=== PATIENT | female | born 1985 | race Caucasian/White ===

== ENCOUNTER 2021-07-16 12:35 | Outpatient (CLI) | payer OTHER, SELFPAY ==
--- NOTE | 2021-07-16 | ECHO_ITS ---
Patient Info Name: Sheryl MartinezSee Age: 36 years : 1985 Gender: Female Ht: 63 in Wt: 280 lbs BSA: 2.46 m2 HR: 95 bpm BP: 117 / 88 mmHg Heart Rhythm: Sinus Rhythm Technical Quality: Fair Exam Date: 07/16/2021 12:21 PM Exam Location: [facility] Patient Status: Outpatient Admit Date: 07/16/2021 Staff Ordering Physician: FLORIAN MACDONALD Superintendent Track: Janelle Aj RDCS Attending Provider: Florian Macdonald MD Referring Physician: TORRES VANCE; Exam Type: CA echo doppler color flow Study Info Indications - Hypermobile Janelle-Danlos Syndrome Complete two-dimensional, color flow and Doppler transthoracic echocardiogram is performed. Summary 1. Complete two-dimensional, color flow and Doppler transthoracic echocardiogram is performed. 2. Left ventricular chamber dimension is normal. 3. Left ventricular systolic function is normal, estimated at 60-65%. 4. The left ventricular diastolic function is normal. 5. E/e' 9 is minimally elevated. 6. No pulmonary hypertension, estimated pulmonary arterial systolic pressure is 25 mmHg. Left Ventricle E/e' 9 is minimally elevated. Left ventricular chamber dimension is normal. Left ventricular systolic function is normal, estimated at 60-65%. The left ventricular diastolic function is normal. Right Ventricle Right ventricular systolic function is normal and with normal TAPSE 2.1 cm. Right ventricular chamber dimension is normal. Left Atria Left atrial chamber dimension is normal. Right Atria Right atrial chamber dimension is normal. Aortic Valve The aortic valve is trileaflet. There is no aortic valve stenosis. There is no aortic valve regurgitation. Pulmonic Valve There is no pulmonic regurgitation. Mitral Valve There is no mitral valve stenosis. There is no mitral valve regurgitation. Tricuspid Valve There is no tricuspid valve regurgitation. No pulmonary hypertension, estimated pulmonary arterial systolic pressure is 25 mmHg. Pericardium/Pleural There is no pericardial effusion. Inferior Vena Cava Normal inferior vena cava with >50% collapse upon inspiration consistent with normal right atrial pressure, 5 mmHg. Aorta The aortic root size at the sinus of Valsalva is normal. Left Ventricular Outflow Tract Name Value Normal LVOT 2D LVOT Diameter 2.0 cm LVOT Doppler LVOT Peak Gradient 7 mmHg LVOT Mean Gradient 3 mmHg LVOT VTI 24 cm LVOT VTI/AV VTI Ratio 0.7 LVOT Stroke Volume 78 ml LVOT CO 6.5 l/min LVOT CI 2.7 l/min/m2 Pulmonic Valve Name Value Normal RVOT Doppler RVOT Peak Gradient 2 mmHg PV Doppler ---------
== END 2021-07-16 12:36 | disposition home or self-care (01) ==
LOC: ANHCARD 12:38
PROVIDERS: PCP Emergency Medicine; Visit Provider Emergency Medicine
DX: Q79.62 Hypermobile Ehlers-Danlos syndrome (principal)
CPT/HCPCS: 93306

== ENCOUNTER 2022-10-01 09:40 | Outpatient (CLI) | payer OTHER, SELFPAY ==
[2022-10-01 10:12] LABS: Hemoglobin 13.4 g/dL (12.0-15.0); Mean Corpuscular HGB Conc 32.7 g/dl (32-36); Mean Corpuscular Hemoglobin 28.4 pg (26-34); Mean Corpuscular Volume 86.9 fl (80-100); Mean Platelet Volume 9.7 fl (7.4-10.4); Platelet Count Result 272 k/mm3 (150-375); Red Blood Count 4.72 M/mm3 (4.2-5.4); Red Cell Distribution Width 12.4 % (11.5-14.5); White Blood Count 11.2 K/mm3 (4.5-10.0)
== END 2022-10-01 09:41 | disposition home or self-care (01) ==
LOC: ANHLAB 09:41
PROVIDERS: PCP Emergency Medicine; Visit Provider Obstetrics & Gynecology
DX: N92.0 Excessive and frequent menstruation with regular cycle (principal)
CPT/HCPCS: 36415; 85027

== ENCOUNTER 2022-10-03 02:50 | Day surgery (SDC) | payer OTHER, SELFPAY ==
[2022-09-26 10:09] VITALS: BMI 50.5
--- NOTE | 2022-09-26 10:33 | PC.NURSE ---
Report to the Outpatient Waiting Room, entrance under the green pavilion located off [facility], at 0730 on 10-03-22. Planned Procedure Time: 0930. Time changes happen often and if your time is changed the preop area will call you the afternoon before. - You and your visitor will be asked to self-screen and do not enter if you have any COVID symptoms. - A mask is optional within the hospital at this time. Patients may have clear liquids (water, carbonated beverages, clear teas, apple juice) until 3 hours prior to surgery with a maximum of 20 ounces. 0630 - No food from midnight until time of surgery - Infants may have breast milk until 4 hours before surgery, formula 6 hours prior to surgery. - Children will be allowed to drink immediately following surgery. If applicable, please bring a bottle or sippy cup to assist with drinking. Juice, water, soda, and popsicles are readily available. For infants on formula, please bring formula the day of surgery. Pacifiers are allowed. Take the following medications with a SIP of water the morning of surgery: None Bring inhalers to hospital day of surgery DO NOT STOP ANY OF YOUR OTHER PRESCRIPTION MEDICATIONS PRIOR TO SURGERY ?EXCEPT THE FOLLOWING Medications to discontinue per physician: Ibuprofen Date to take last dose: Per Dr. Austin Please no make-up, nail bahamian, hairspray, perfume, deodorant, or body powder the day of surgery. No jewelry (including any body piercings) or valuables the day of surgery, leave them at home. Please take a shower or bath the night before, or the morning of, surgery with an antibacterial soap. Wear comfortable, loose fitting clothing. Children are encouraged to wear pajamas. - Jewelry must be removed prior to entering the operating room. Rings and piercings that are not removed may be cut off. - The hospital will not accept responsibility for valuables. - Please leave all valuables, including medications, at home the day of surgery. If you are going home after surgery, a licensed backhaul driver must drive you home. - NO public transportation without another adult if you receive anesthesia. - We recommend that an adult stay with you for 24 hours following discharge. - We also recommend that you do not drive, make important decision, drink alcoholic beverages, or take any drugs that were not prescribed by your health care provider for at least 24 hours after your discharge time. For Pediatric surgeries, we recommend two adults accompany the child home. Follow any additional instructions given to you from your surgeon. If you or anyone in your household have experienced Covid symptoms in the past week, please notify your surgeon or the nurse liaison at the phone number below for possible testing. Telephone instructions given to Sheryl Knight and asked if any additional questions and then verbalized understanding. Patient advised to call surgeon office or pre surgery nurse liaison [phone] if any additional questions.
--- NOTE | 2022-10-03 07:19 | WPDHPUPDATE1 ---
History and Physical Update Update Date/Time: 10/03/22 07:19 Plan: 1. hysteroscopy with D&C 2. endometrial ablation History and Physical has been reviewed, including an updated exam of the patient. There are NO changes in the patient's condition. Risks, benefits, and alternatives have been discussed and questions answered. Patient agrees to proceed with procedure.
[2022-10-03 07:50] VITALS: BP 150/74; PULSE 80; RESP 16; TEMP 36.2; O2SAT 100
[2022-10-03 08:02] VITALS: BMI 51.5
[2022-10-03] MEDS: LACTATED RINGERS 1,000 ML 30 ML IV CONT (08:05)
[2022-10-03] MEDS: ACETAMINOPHEN 500 MG TABLET 1000 MG PO (08:15)
--- NOTE | 2022-10-03 09:23 | WPDANESEPPF ---
Anes - Initial Pre Proc Eval Procedure: Operation Date: 10/03/22 09:30 Proposed Procedures p Hysteroscopy Dilation and Curettage, Deirdre Endometrial Ablation - Humberto Austin MD Date/Time: 10/03/22 09:23 Surgeon: Humberto Austin MD Pre Op Diagnosis: Menorrhagia Patient Data Age: 37 Gender: F Height: 1.6 m Weight: 131.9 kg Last Vital Signs Temp 36.2 C L 10/03/22 07:50 Pulse 80 10/03/22 07:50 Resp 16 10/03/22 07:50 BP 150/74 H 10/03/22 07:50 Pulse Ox 100 10/03/22 07:50 O2 Del Method Room Air 10/03/22 07:50 Allergies Allergy/AdvReac Type Severity Reaction Status Date / Time codeine Allergy Mild suicidal Verified 10/03/22 08:19 copper AdvReac Intermediate Other Verified 10/03/22 08:19 BUTORPHANOL TARTRATE Allergy Mild Confusion Uncoded 09/26/22 10:01 Dial soap Allergy Mild Itching Uncoded 09/26/22 10:01 Home Medications Medication Instructions Recorded Confirmed Type albuterol sulfate 90 mcg/actuation 1 inh inhalation Q4H 08/27/21 09/26/22 History aerosol inhaler (Ventolin HFA) fluticasone propionate 113 1 inh inhalation Q12H 08/27/21 10/03/22 History mcg/actuation breath activated pwdr inhal,sensor (ArmonAir Digihaler) montelukast 10 mg tablet 10 mg PO DAILY 08/27/21 09/26/22 History ibuprofen 200 mg tablet 400 mg PO Q6H PRN pain 09/26/22 09/26/22 History Patient hx anesthesia problems: none Family hx anesthesia problems: none Results Review: All pre-operative results and documents have been reviewed as part of the pre-operative evaluation. [facility] Past Medical History Medical History Asthma Encounter for screening examination for sexually transmitted disease Ganglion cyst (~2011) rt ankle--nerve repair Screening mammogram, encounter for Sleep apnea Vision loss Surgical History Surgical History History of ankle surgery (~2011) rt ankle History of neck surgery (~2013) ACDF C5/6--metal plate & 4 screws History of tubal ligation (12/26/17) Family History Family History Father Diabetes mellitus Grandparent Cerebrovascular accident maternal grandfather Hypertension maternal grandfather Mother Hypertension Other Family history of arthritis Family history of mental disorder Social History Social History Smoking status: Never smoker Second hand tobacco smoke exposure: No Alcohol intake: never Substance use: never Substance use type: does not use Living arrangements: with family Additional living arrangements comments: / Occupation/Education: occupation 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 Gender identity (if verbalized by the patient): Female Sexual Orientation (if Verbalized by the Patient): Straight or Heterosexual Spiritual care concerns: No Anes - Eval Final PreProcedure Day of Procedure 10/03/22 09:23 Patient weight: morbidly obese Heart: regular rate and rhythm Lungs: clear to auscultation Airway: Mallampati scale class II Neurological: alert and oriented Last oral intake: >/= 8 hours ASA classification: III Emergent: no Anesthetic plan: proceed Anesthesia type and monitoring: general GIVS and standard monitoring Results Review: All pre-operative results and documents have been reviewed as part of the pre-operative evaluation. Informed Consent: The patient's anesthetic plan and its attendant risks and benefits were discussed with the patient/family/POA. Questions were solicited and answers provided to the satisfaction of the patient/family/POA.
[2022-10-03] MEDS: ceFAZolin 3 GM/D5W 100 ML 100 ML IVPB (09:33)
--- NOTE | 2022-10-03 10:03 | W.PM.PROC2 ---
Procedure Note - Detailed Date of Procedure 10/03/22 Pre-op Diagnosis Menorrhagia Post-op Diagnosis Same Procedure Performed 1. Hysteroscopy with uterine curettings 2. Endometrial ablation Surgeon Humberto Austin MD Anesthesia MAC Findings Slightly thickened endometrial tissue Description of Procedure Patient prepped and draped in usual manner for this procedure. Cervix was dilated to allow the hysteroscope to be placed which did reveal slightly thickened endometrial cavity but no polyps or fibroids appreciated. Uterine curettings were obtained, endometrial ablation instrument was placed cavity assessment was performed. Instrument was activated with good destruction noted throughout after the procedure. Patient was then sent to recovery room in stable condition. Estimated Blood Loss 10 Drains No Packing No Pathology Yes Complications No immediate complications Condition Stable Disposition PACU [facility] Billing Surgery - Charge Forward: Surgery Billing
[2022-10-03 10:05] VITALS: BP 129/77; PULSE 77; RESP 14; O2SAT 95
[2022-10-03 10:35] VITALS: BP 117/72; PULSE 74; RESP 14; O2SAT 99
[2022-10-03 11:05] VITALS: BP 121/78; PULSE 74; RESP 14
== END 2022-10-03 11:26 | disposition home or self-care (01) ==
PROVIDERS: PCP Emergency Medicine; Visit Provider Obstetrics & Gynecology
PROC: 0U5B8ZZ Destruction of Endometrium, Via Natural or Artificial Opening Endoscopic (ICD-10-PCS; CPT 58563; principal; 2022-10-03 09:30)
DX: N92.0 Excessive and frequent menstruation with regular cycle (principal); J45.909 Unspecified asthma, uncomplicated; G47.30 Sleep apnea, unspecified; Z79.51 Long term (current) use of inhaled steroids; E66.01 Morbid (severe) obesity due to excess calories; Z68.43 Body mass index [BMI] 50.0-59.9, adult
CPT/HCPCS: 58563; 88305; A9270; J0690; J1100; J2250; J2405; J2704; J3010; J7120

== ENCOUNTER 2023-01-23 14:13 | Outpatient (CLI) | payer OTHER, SELFPAY ==
--- NOTE | ~2023-01-23 | MM_ITS ---
EXAMINATION: MM screening galdino BI w sallie HISTORY: Screening TECHNIQUE: Craniocaudal and mediolateral oblique 3-D tomosynthesis images were obtained and synthetic 2-D images were generated. CAD analysis was submitted and interpreted. COMPARISON: No prior mammogram is available for comparison at this institution. BREAST PARENCHYMAL COMPOSITION: The breasts are almost entirely fatty. FINDINGS: There is no evidence of suspicious mass, calcification, or architectural distortion to sugg est malignancy in either breast. There has been no suspicious interval change. IMPRESSION: 1. No mammographic evidence of malignancy. 2. Recommend routine screening mammography in one year. BI-RADS Category 1: Negative Reviewed, dictated and finalized at location A.
== END 2023-01-23 14:14 | disposition home or self-care (01) ==
PROVIDERS: PCP Emergency Medicine; Visit Provider Emergency Medicine
DX: Z12.31 Encounter for screening mammogram for malignant neoplasm of breast (principal)
CPT/HCPCS: 77063; 77067

== ENCOUNTER 2023-01-29 01:17 | Day surgery (SDC) | payer OTHER, SELFPAY ==
[2023-01-17 13:29] VITALS: BMI 50.5
[2023-01-29 07:57] VITALS: BP 135/74; PULSE 93; RESP 18; TEMP 36.1; O2SAT 98
[2023-01-29] MEDS: LACTATED RINGERS 1,000 ML 150 ML IV CONT (08:15)
--- NOTE | 2023-01-29 09:00 | PM.HPGS ---
History of Present Illness History of Present Illness Consent: Risks, benefits, and alternatives have been discussed and questions answered. Patient agrees to proceed with procedure. Chief complaint: Iron Deficiency Anemia Narrative: Sheryl Palma is a 38 year old female with mishel on iv iron infusion as needed, also diarrhea up to 6 times a day, no overt gib, never had scopes Review of Systems Constitutional: Constitutional: Denies headache(s) and Denies weakness Eyes: Eyes: Denies blurry vision ENT: Reports Normal hearing present, Denies headache(s) and Denies neck pain Cardiovascular: Cardiovascular: Denies chest pain and Denies dyspnea Respiratory: Respiratory: Denies dyspnea Gastrointestinal: Gastrointestinal: Reports no additional gastrointestinal complaints Genitourinary: Genitourinary: Denies dysuria Musculoskeletal: Musculoskeletal: Denies neck pain Integumentary/Breasts: Skin/Breast: Denies dry skin Neurologic: Reports Normal hearing present, Denies headache(s) and Denies weakness Psychiatric: Psychiatric: Denies anxiety Endocrine: Endocrine: Denies change in body appearance Hematologic/Lymphatic: Hematologic/Lymphatic: Denies easy bleeding Allergic/Immunologic: Allergic/Immunologic: Denies urticaria PMFSH Past Medical History Medical History (Updated 01/29/23 @ 09:01 by Kody Diaz MD) Asthma Diarrhea Encounter for screening examination for sexually transmitted disease Ganglion cyst (~2011) rt ankle--nerve repair Iron deficiency anemia Screening mammogram, encounter for Sleep apnea Vision loss Surgical History Surgical History History of ankle surgery (~2011) rt ankle History of hysteroscopy (10/03/22) Hysteroscopy with uterine curettings Endometrial ablation History of neck surgery (~2013) ACDF C5/6--metal plate & 4 screws History of tubal ligation (12/26/17) Family History Family History Father Diabetes mellitus Grandparent Cerebrovascular accident maternal grandfather Hypertension maternal grandfather Mother Hypertension Other Family history of arthritis Family history of mental disorder Social History Social History (Updated 10/21/22 @ 14:55 by RAQUEL Solomon) Smoking status: Never smoker Second hand tobacco smoke exposure: No Alcohol intake: never Substance use: never Substance use type: does not use Lack of Transportation: No Lack of Food: Never True Current Housing: I Have Housing Concerned About Future Housing: No Difficulty Paying Gas/Electric Bills: No Difficulty Paying for Meds: No Currently Unemployed: No Education: Associate Degree Difficulty w/ Childcare or Family Care: No Living arrangements: alone Additional living arrangements comments: / Occupation/Education: occupation 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 Gender identity (if verbalized by the patient): Female Sexual Orientation (if Verbalized by the Patient): Straight or Heterosexual Spiritual care concerns: No Meds Home Medications and Allergies Home Medications Medication Instructions Recorded Confirmed Type albuterol sulfate 90 mcg/actuation 1 inh inhalation Q4H PRN SOB 08/27/21 01/29/23 History aerosol inhaler (Ventolin HFA) fluticasone propionate 113 1 inh inhalation Q12H 08/27/21 01/29/23 History mcg/actuation breath activated pwdr inhal,sensor (ArmonAir Digihaler) montelukast 10 mg tablet 10 mg PO DAILY 08/27/21 01/29/23 History ibuprofen 200 mg tablet 400 mg PO Q6H PRN pain 09/26/22 01/29/23 History ascorbic acid (vitamin C) 1 gummy PO DAILY 01/17/23 01/29/23 History Allergies Allergy/AdvReac Type Severity Reaction Status Date / Time codeine Allergy Severe suicidal Verified 01/29/23 07:55 butorphanol [From Stadol] Aller
[2023-01-29] MEDS: BENZOCAINE (*SP) 60 ML SPRAY CAN (HURRICAINE) 1 SPRAY MUCOUS MEM (09:12)
--- NOTE | 2023-01-29 09:17 | WPDANESEPPF ---
Anes - Initial Pre Proc Eval Procedure: Operation Date: 01/29/23 09:15 Proposed Procedures p Esophagogastroduodenoscopy & Colonoscopy - Kody Diaz MD Date/Time: 01/29/23 09:17 Surgeon: Kody Diaz MD Pre Op Diagnosis: Iron Deficiency Anemia Patient Data Age: 38 Gender: F Height: 1.6 m Weight: 126.6 kg Last Vital Signs Temp 96.9 F L 01/29/23 07:57 Pulse 93 01/29/23 07:57 Resp 18 01/29/23 07:57 BP 135/74 01/29/23 07:57 Pulse Ox 98 01/29/23 07:57 O2 Del Method Room Air 01/29/23 07:57 Allergies Allergy/AdvReac Type Severity Reaction Status Date / Time codeine Allergy Severe suicidal Verified 01/29/23 07:55 butorphanol [From Stadol] Allergy Intermediate Confusion Verified 01/29/23 07:55 copper AdvReac Intermediate Other Verified 01/29/23 07:55 Dial soap Allergy Mild Itching Uncoded 01/29/23 07:55 Home Medications Medication Instructions Recorded Confirmed Type albuterol sulfate 90 mcg/actuation 1 inh inhalation Q4H PRN SOB 08/27/21 01/29/23 History aerosol inhaler (Ventolin HFA) fluticasone propionate 113 1 inh inhalation Q12H 08/27/21 01/29/23 History mcg/actuation breath activated pwdr inhal,sensor (ArmonAir Digihaler) montelukast 10 mg tablet 10 mg PO DAILY 08/27/21 01/29/23 History ibuprofen 200 mg tablet 400 mg PO Q6H PRN pain 09/26/22 01/29/23 History ascorbic acid (vitamin C) 1 gummy PO DAILY 01/17/23 01/29/23 History Patient hx anesthesia problems: none Family hx anesthesia problems: none Results Review: All pre-operative results and documents have been reviewed as part of the pre-operative evaluation. [facility] Past Medical History Medical History (Updated 01/29/23 @ 09:01 by Kody Diaz MD) Asthma Diarrhea Encounter for screening examination for sexually transmitted disease Ganglion cyst (~2011) rt ankle--nerve repair Iron deficiency anemia Screening mammogram, encounter for Sleep apnea Vision loss Surgical History Surgical History History of ankle surgery (~2011) rt ankle History of hysteroscopy (10/03/22) Hysteroscopy with uterine curettings Endometrial ablation History of neck surgery (~2013) ACDF C5/6--metal plate & 4 screws History of tubal ligation (12/26/17) Family History Family History Father Diabetes mellitus Grandparent Cerebrovascular accident maternal grandfather Hypertension maternal grandfather Mother Hypertension Other Family history of arthritis Family history of mental disorder Social History Social History (Updated 10/21/22 @ 14:55 by RAQULE Solomon) Smoking status: Never smoker Second hand tobacco smoke exposure: No Alcohol intake: never Substance use: never Substance use type: does not use Lack of Transportation: No Lack of Food: Never True Current Housing: I Have Housing Concerned About Future Housing: No Difficulty Paying Gas/Electric Bills: No Difficulty Paying for Meds: No Currently Unemployed: No Education: Associate Degree Difficulty w/ Childcare or Family Care: No Living arrangements: alone Additional living arrangements comments: / Occupation/Education: occupation 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
--- NOTE | 2023-01-29 09:37 | SUR.OPER ---
EGD START 913, END 919 COLONOSCOPY START 924, END 933
[2023-01-29 09:38] VITALS: BP 140/79; PULSE 83; RESP 22; O2SAT 98
[2023-01-29 09:48] VITALS: BP 110/60; PULSE 76; RESP 17; O2SAT 98
== END 2023-01-29 10:07 | disposition home or self-care (01) ==
PROVIDERS: PCP Emergency Medicine; Visit Provider Internal Medicine Gastroenterology
PROC: 0DJ08ZZ Inspection of Upper Intestinal Tract, Via Natural or Artificial Opening Endoscopic (ICD-10-PCS; CPT 43235; principal; 2023-01-29 09:15)
DX: D50.9 Iron deficiency anemia, unspecified (principal); R19.7 Diarrhea, unspecified; K22.2 Esophageal obstruction; K20.90 Esophagitis, unspecified without bleeding; K44.9 Diaphragmatic hernia without obstruction or gangrene; J45.909 Unspecified asthma, uncomplicated; G47.30 Sleep apnea, unspecified; Z79.51 Long term (current) use of inhaled steroids; Z98.1 Arthrodesis status
CPT/HCPCS: 45380; 43239; 43249; 88305; C1726; J2001; J2704; J7120

== ENCOUNTER 2023-02-26 06:00 | Outpatient (CLI) | payer OTHER, SELFPAY ==
[2023-02-10 14:04] VITALS: BMI 49.6
--- NOTE | 2023-02-26 06:38 | SUR.OPER ---
Patient brought to GI Lab. Instructions for patient undergoing Capsule Endoscopy reviewed with patient. Consent form signed. Sensor array applied to patient's abdomen and connected to recorded. Patient swallowed capsule with 16 ozs of water infused with Simethicone. Patient instructed they may have clear liquids at 0825 this AM and eat or drink at 1025 this AM. Patient instructed to return to GI Lab at 1500 this afternoon for removal of recording device and to call [phone] or to return to the hospital if any nausea and vomiting or abdominal pain is experienced.
--- NOTE | 2023-02-26 14:51 | SUR.OPER ---
Patient returned to the GI Lab at 1445 for recorder box removal. Patient voiced no complaints. States they have understanding of instructions. Patient left ambulatory.
== END 2023-02-26 14:53 | disposition home or self-care (01) ==
LOC: ANHENDO 06:01
PROVIDERS: PCP Emergency Medicine; Visit Provider Internal Medicine Gastroenterology
PROC: 0DJ07ZZ Inspection of Upper Intestinal Tract, Via Natural or Artificial Opening (ICD-10-PCS; CPT 91110; principal; 2023-02-26 07:00)
DX: Z01.818 Encounter for other preprocedural examination (principal); Z12.11 Encounter for screening for malignant neoplasm of colon
CPT/HCPCS: 91110

== ENCOUNTER 2024-08-13 13:28 | Emergency (ER) | payer OTHER, SELFPAY ==
[2024-08-13 13:38] VITALS: BP 133/76; PULSE 87; RESP 16; TEMP 36.3; O2SAT 98
--- NOTE | 2024-08-13 14:57 | ED_ITS ---
HPI - Ear Problem General Chief complaint: Ear Stated complaint: SORE THROAT/CONGESTION/HEADACHE/EARACHE Time Seen by Provider: 08/13/24 14:05 Source: patient and RN notes reviewed Mode of arrival: ambulatory Limitations: no limitations History of Present Illness HPI Narrative: 39-year-old female presents Express Care complaining of right-sided ear pain and congestion for 2 days. Patient denies any fever, cough, sore throat, body aches, chills. Patient has used [id number] Tylenol with minimal relief. Patient denies any chest pain or shortness of breath. Denies any significant past medical history Related Data Home Medications ?Medication ?Instructions ?Recorded ?Confirmed ?Last Taken ?Type albuterol sulfate 90 mcg/actuation 1 inh inhalation Q4H PRN SOB 08/27/21 09/08/23 Unknown History aerosol inhaler (Ventolin HFA) fluticasone propionate 113 1 inh inhalation Q12H 08/27/21 09/08/23 01/28/23 History mcg/actuation breath activated pwdr inhal,sensor (ArmonAir Digihaler) montelukast 10 mg tablet 10 mg PO DAILY 08/27/21 09/08/23 01/28/23 History ibuprofen 200 mg tablet 400 mg PO Q6H PRN pain 09/26/22 09/08/23 Unknown History ascorbic acid (vitamin C) 1 gummy PO DAILY 01/17/23 09/08/23 Unknown History Allergies Allergy/AdvReac Type Severity Reaction Status Date / Time codeine Allergy Severe suicidal Verified 08/13/24 13:42 butorphanol (From Stadol) Allergy Intermediate Confusion Verified 08/13/24 13:42 copper AdvReac Intermediate Other Verified 08/13/24 13:42 Dial soap Allergy Mild Itching Uncoded 08/13/24 13:42 Review of Systems Review of Systems: CONSTITUTIONAL: Denies fever, chills, or sweats. EYES: Denies visual changes, redness, or discharge. ENT: Denies rhinorrhea, sore throat, positive for congestion and otalgia. CARDIOVASCULAR: Denies chest pain, palpitations, or edema. RESPIRATORY: Denies cough or dyspnea. GASTROINTESTINAL: Denies abdominal pain, nausea, vomiting, or diarrhea. GENITOURINARY: Denies dysuria or hematuria. SKIN: Denies rash or itching. MUSCULOSKELETAL: Denies back pain, joint pain, or myalgia. NEUROLOGIC: Denies headache, numbness, or weakness. PSYCHIATRIC: Denies anxiety or depression. All other systems reviewed are negative, except as documented in HPI. [facility] Past Medical History Medical History Diarrhea Iron deficiency anemia Screening mammogram, encounter for Encounter for screening examination for sexually transmitted disease Vision loss Ganglion cyst (~2011) rt ankle--nerve repair Sleep apnea Asthma Surgical History Surgical History H/O colonoscopy (02/03/23) History of hysteroscopy (10/03/22) Hysteroscopy with uterine curettings Endometrial ablation History of tubal ligation (12/26/17) History of neck surgery (~2013) ACDF C5/6--metal plate & 4 screws History of ankle surgery (~2011) rt ankle Family History Family History Father Diabetes mellitus Grandparent Cerebrovascular accident maternal grandfather Hypertension maternal grandfather Mother Hypertension Other Family history of arthritis Family history of mental disorder Social History Social History Smoking status: Never smoker Second hand tobacco smoke exposure: No Alcohol intake: never Substance use: never Substance use type: does not use Do You Feel Safe in your Home?: Yes Lack of Transportation: No Lack of Food: Never True Current Housing: I Have Housing Concerned About Future Housing: No Difficulty Paying Gas/Electric Bills: No Difficulty Paying for Meds: No Currently Unemployed: No Education: Associate Degree Difficulty w/ Childcare or Family Care: No Living arrangements: alone Additional living arrangements comments: Occupation/Education: occupation 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 There is no relevant family history pertinent to the patient complaint. Exam Narrative: GENERAL: This is a well-nourished, well-developed adult, in no apparent distress. They are non ill-appearing, nontoxic appearing. HEAD: normocephalic, atraumatic. EYES: Sclera clear/white. Vision is grossly intact. EARS: External ears normal, auditory canals clear and without drainage, right TM is erythematous, non bulging, without perforation or discharge. Left TM mild erythemic, without swelling, non-bulging, without perforation or discharge. Hearing grossly intact. NOSE: External nose normal with no obvious nasal discharge, nasal turbinates are erythematous bilaterally, no rhinorrhea. THROAT: Mucous membranes moist, posterior pharynx clear. Uvula midline. Postnasal drip present NECK: Neck supple, non-tender without lymphadenopathy, masses or thyromegaly. CARDIOVASCULAR: Regular rate and rhythm without murmurs, gallops, or rubs. RESPIRATORY: Clear to auscultation. Breath sounds equal bilaterally. No wheezes, rales, or rhonchi. SKIN: warm, Dry, intact with no suspicious lesions or rash, good texture and turgor. NEURO: awake, alert, and oriented to person, place and time. There were no obvious focal neurologic abnormalities. EXTREMITIES: No joint tenderness, effusion, or edema noted. BACK: Nontender without deformity. No CVA tenderness. Course Course Level of Care: Express Care Visit Vital Signs Vital signs: Vital Signs Temperature 97.4 F L 08/13/24 13:38 Pulse Rate 87 08/13/24 13:38 Respiratory Rate 16 08/13/24 13:38 Blood Pressure 133/76 08/13/24 13:38 Pulse Oximetry 98 08/13/24 13:38 Oxygen Delivery Room Air 08/13/24 13:38 Temperature 97.4 F L 08/13/24 13:38 Pulse Rate 87 08/13/24 13:38 Respiratory Rate 16 08/13/24 13:38 Blood Pressure 133/76 08/13/24 13:38 Pulse Oximetry 98 08/13/24 13:38 Oxygen Delivery Room Air 08/13/24 13:38 Reviewed Medical Decision Making MDM Narrative Medical decision making narrative: Patient's symptoms are likely viral etiology. Does appear the patient may be developed an otitis media to the right ear. Discussed watchful waiting with patient through shared decision making. Will prescribe amoxicillin empirically for her her otitis media and she says she will decide if she will start taking it today or wait and see if her symptoms get better in the next couple days. Discussed physical exam findings. Advised supportive measures and signs/symptoms to go to the ER. Pt is appropriate for outpt treatment and f/u. Differential Diagnosis Differential Diagnosis: Otitis media, upper respiratory infection, pharyngitis, otitis externa Vital Signs Vital Signs: Vital Signs Temperature 97.4 F L 08/13/24 13:38 Pulse Rate 87 08/13/24 13:38 Respiratory Rate 16 08/13/24 13:38 Blood Pressure 133/76 08/13/24 13:38 Pulse Oximetry 98 08/13/24 13:38 Oxygen Delivery Room Air 08/13/24 13:38 Temperature 97.4 F L 08/13/24 13:38 Pulse Rate 87 08/13/24 13:38 Respiratory Rate 16 08/13/24 13:38 Blood Pressure 133/76 08/13/24 13:38 Pulse Oximetry 98 08/13/24 13:38 Oxygen Delivery Room Air 08/13/24 13:38 Critical Care Time Critical Care Time Critical Care Time: No Discharge Plan Discharge Clinical Impression: Upper respiratory infection Qualifiers: URI type: unspecified viral URI Qualified Code(s): J06.9 - Acute upper respiratory infection, unspecified Otitis media Qualifiers: Otitis media type: unspecified Chronicity: acute Qualified Code(s): H66.90 - Otitis media, unspecified, unspecified ear Patient Disposition: Home Condition: Stable Instructions: Antibiotic Form, Ear Infection (ED) Additional Instructions: Take antibiotics as directed. Recommend antihistamine such as Benadryl, Zyrtec or Ana for sinus congestion Flonase nasal spray, 1 spray in each nostril once daily until symptoms improve Symptomatic treatment includes: rest, fluids, and increase humidity of the air at home. Tylenol 1000mg every 8 hours as needed to reduce fever, pain Please schedule a follow-up visit with your personal physician for further evaluation and treatment within 3-5days. If your symptoms persist, change or worsen significantly, go to the emergency department for further evaluation. Patient Language: Uruguayan Prescriptions: New amoxicillin 875 mg tablet 875 mg PO Q12H 7 Days Qty: 14 0RF No Action montelukast 10 mg tablet 10 mg PO DAILY albuterol sulfate [Ventolin HFA] 90 mcg/actuation HFA aerosol inhaler 1 inh inhalation Q4H PRN (Reason: SOB) ArmonAir Digihaler 113 mcg/actuation aero powdr breath act w/sensor 1 inh inhalation Q12H ibuprofen 200 mg Tablet 400 mg PO Q6H PRN (Reason: pain) ascorbic acid (vitamin C) 1 gummy PO DAILY Follow-up/Referrals: Quirino Menezes MD [Primary Care Provider] - Stand Alone Forms: Work/School Release IP Time of Disposition: 14:23
== END 2024-08-13 14:27 | disposition home or self-care (01) ==
PROVIDERS: PCP Emergency Medicine
DX: H66.91 Otitis media, unspecified, right ear (principal); J06.9 Acute upper respiratory infection, unspecified; J45.909 Unspecified asthma, uncomplicated
CPT/HCPCS: 99213; G0463

== ENCOUNTER 2025-03-03 08:15 | Outpatient (CLI) | payer SELFPAY ==
--- OUTSIDE RECORDS SUMMARY | 2024-03-01 08:45 | XMS_ITS ---
Author Organization [facility] hari Address [address], [place] [address] Care Team Providers Care Business Division Chair Name Role Phone Clif HARRISON, Quirino Primary Care Provider UnavailSandra Finch Unavailable [phone] REASON FOR VISIT 3 month f/u joint pain Encounters Encounter Location Date Provider Diagnosis [facility] [address], [place] [address] 03/01/2024 Sandra Knott Plan Of Treatment No Information Progress Notes * Sheryl KNIGHT ADOB: (40 yo F)Acc No.[id number]:03/01/2024 Progress Notes Patient: Sheryl ALVAREZ Appointment Provider: Crissy KNOTT MD :1985 A ge:39 Y S ex:Female Date:03/01/2024 Address:[address] [place] [address] Pcp:Quirino Menezes MD Subjective: * Chief Complaints: * 1 . 3 month f/u joint pain. * Medical History: Objective: * Vitals: Assessment: Plan: * Treatment: * Billing Information: * Visit Code: * Procedure Codes: * Electronic signature of Sandra Knott MD on 03/03/2025 at 08:32 AM CDT Sign off status: Pending * Appointment Provider: Crissy KNOTT MD Date: Generated for Printi ng/Fajordang/eTransmitting on: 1 08:32 AM CDT
--- NOTE | ~2025-03-03 | MM_ITS ---
EXAMINATION: MM screening galdino BI w sallie HISTORY: Screening TECHNIQUE: Craniocaudal and mediolateral oblique 3-D tomosynthesis images were obtained and synthetic 2-D images were generated. CAD analysis was submitted and interpreted. COMPARISON: Comparison to multiple prior studies sequentially, with oldest reviewed study dated 01/23/2023. BREAST PARENCHYMAL COMPOSITION: Not Dense: The breasts are almost entirely fatty. FINDINGS: There is no evidence of suspicious mass, calcification, or architectural distortion to suggest malignancy in either breast. There has been no suspicious interval change. IMPRESSION: 1. No mammographic evidence of malignancy. 2. Recommend routine screening mammography in one year. BI-RADS Category 1: Negative Reviewed, dictated and finalized at location C.
--- OUTSIDE RECORDS SUMMARY | 2025-03-03 08:32 | XMS_ITS | Clinical Summary ---
Author Organization [facility] Address [address] [place] [address] Phone Care Team Providers Care Logging Engineer Name Role Phone Quirino Menezes Primary Care Provider [phone] Pako Kovacs MD Unavailable Allergies Active Allergy Reactions Criticality Noted Date Comments Codeine Other (see Comments) 08/09/2021 Copper Unknown 12/19/2022 Soap Unknown 12/19/2022 dial Butorphanol Other (see Comments) 08/09/2021 Medications Ascorbic Acid (VITAMIN C PO) Take by mouth. Active albuterol 108 (90 Base) MCG/ACT Aerosol Solution take 2 Puffs by inhalation every 4 hours as needed. Active montelukast (SINGULAIR) 10 MG Tablet Take 10 mg by mouth every evening. 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 08/09/2021 Family History Medical History Relation Name Comments Depression Mother Depression Sister Relation Name Status Comments Mother Sister Social History Tobacco Use Types Packs/Day Years Used Date Smoking Tobacco: Never Smokeless Tobacco: Never Tobacco Cessation:Counseling Given: Not Answered PHQ-2 Answer Date Recorded Total Score - Questions 1-9 1 11/2021 Comments Unknown Sex and Gender Information Value Date Recorded Sex Assigned at Not on file 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 Gender Identity Not on file Sexual Orientation Not on file Last Filed Vital Signs Vital Sign Reading Time Taken Comments Blood Pressure 124/72 12/15/2023 10:44 AM CDT Pulse 84 12/15/2023 10:44 AM CDT Temperature 36.7 C (98 F) 12/15/2023 10:44 AM CDT Respiratory Rate 18 12/15/2023 10:44 AM CDT Oxygen Saturation 97% 12/15/2023 10:44 AM CDT Inhaled Oxygen Concentration - - Weight 128.4 kg (283 lb) 12/15/2023 10:44 AM CDT Height 160 cm (5' 3) 12/15/2023 10:44 AM CDT Body Mass Index 50.13 12/15/2023 10:44 AM CDT Plan of Treatment Health Maintenance Due Date Last Done Comments Hepatitis C Virus (HCV) Screening 1983 Mammogram 1983 TdaP Immunization 1983 Hepatitis B Immunization (1 of 3 - 19+ 3-dose series) 2002 Pap Smear 01/04/2004 Human Papillomavirus (HPV) Immunization (1 - 3-dose SCDM series) 2010 Cervical Cancer Screening (CCS) 2013 HPV/Cotest 2013 Discussion re Starting/Frequency of Mammograms 2023 Influenza Immunization (#1) 2025 SARS-COV-2 Immunization ( season) 2025 04/18/2021, 03/21/2021 Respiratory Syncytial Virus (RSV) Immunization (Adult) (1 - 1-dose 75+ series) 2058 Meningococcal Immunization (ACWY) Aged Out No longer eligible b ased on patient's age to complete this topic Pneumococcal Immunization Combined Aged Out No longer eligible b ased on patient's age to complete this topic Rotavirus Immunization Aged Out No lo nger eligible based on patient's age to complete this topic Care Teams Logging Engineer Relationship Specialty Start Date End Date Menezes Quirino [address] [facility] [address] PCP - General Family Medicine 07/11/21 Pako Kovacs MD [address] [place] [phone] Consulting Physician Oncology 07/11/21
--- OUTSIDE RECORDS SUMMARY | 2025-03-03 08:32 | XMS_ITS | Patient Health Record ---
Author Organization [facility] Address [address] [facility] [address] [place] [address] Care Team Providers Care Paper Goods Machine Set Up Operator Name Role Phone Quirino Menezes MD Primary Care Provider Yessica marie Sandra Torres [facility] [phone] Allergies Allergen (clinical drug ingredient) Drug/Non Drug Allergy documented on EMR Reaction Allergy Type Onset Date Status codeine Codeine Unknown Drug Allergy Active Reason For Referral No Information Medications Medication SIG (Take, Route, Frequency, Duration) Notes Start Date End Date Status ProAir HFA Active Fluticasone-Salmeterol 113-14 MCG/ACT 1 puff Inhalation Twice a day Active Montelukast Sodium 10 MG 1 tablet Orally Once a day; Duration: 30 day(s) Active Social History Tobacco Use: Social History Observation Description Date Details (start date - stop date) Never Smoker NA - NA Household Question Answer Notes Marital status: Number of children in household: 1 Tobacco Control (Standard) Question Answer Notes Tobacco use: Nonsmoker Problems Problem Type SNOMED Code ICD Code Onset Dates Problem Status W/U Status Risk Notes Problem Rheumatoid arthritis (22106144) Rheumatoid arthritis, unspecified (M06.9) Active confirmed Plan Of Treatment Pending Test Test Name Order Date URIC ACID (905) 11/12/2023 CREATINE KINASE, TOTAL (374) 11/12/2023 SED RATE BY MODIFIED ADRIANA (809) C-REACTIVE PROTEIN (4420) 11/12/2023 RHEUMATOID FACTOR (4418) 11/12/2023 CYCLIC CITRULLINATED PEPTIDE (CCP) AB (I GG) (38939) 11/12/2023 SJOGREN'S ANTIBODIES (SS-A,SS-B) (7832) 11/12/2023 [id number] DEHYDROGENASE, QN (5 00) 11/12/2023 HEPATITIS B SURFACE ANTIGEN W/REFL CONFI RM (498) 11/12/2023 HEPATITIS C AB W/REFL TO HCV RNA, QN, PC R (1694) 11/12/2023 DANE SCREEN, IFA, W/REFL TITER/PATTERN (R EFL) (5214) 11/12/2023 Insurance Providers Payer Name Payer Address Payer Phone Subscriber Number Group Number Insured Name Patient Relationship to Insured Coverage Start Date Coverage End Date [employer] [address] [place] [address] [id number] Sheryl Higuera Self - patient is the insured Medical (General) History Medical History History ICD Code asthma Surgical History Surgery Date(Month/Year) neck surgery, uterine ablation
== END 2025-03-03 08:16 | disposition home or self-care (01) ==
LOC: ANHFOHIMG 08:24
PROVIDERS: PCP Emergency Medicine; Visit Provider Obstetrics & Gynecology
DX: Z12.31 Encounter for screening mammogram for malignant neoplasm of breast (principal)
CPT/HCPCS: 77063; 77067